=== PATIENT | female | born 2000 | race African-American/Black ===

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

== ENCOUNTER 2022-11-23 23:55 | Emergency (ER) | payer OTHER ==
[~2022-11-23] VITALS: Ht 170.2 cm; Wt 95.3 kg
[2022-11-24 00:07] VITALS: BP 138/74; PULSE 95; RESP 16; TEMP 97.3; O2SAT 98
[2022-11-24 00:16] VITALS: PULSE 88; RESP 18
[2022-11-24 00:19] VITALS: O2SAT 99
[2022-11-24] MEDS ORDERED: KEN.1O TP (00:41)
== END 2022-11-24 00:53 | disposition home or self-care (01) ==
LOC: MED 23:55
DX: L30.8 Other specified dermatitis (principal); K21.9 Gastro-esophageal reflux disease without esophagitis
CPT/HCPCS: 99283

== ENCOUNTER 2022-12-16 00:30 | Emergency (ER) | payer OTHER ==
[~2022-12-16] VITALS: Ht 170.2 cm; Wt 95.3 kg
[2022-12-16 00:30] VITALS: BP 134/80; PULSE 89; RESP 17; TEMP 98.3; O2SAT 100
[~2022-12-16 00:30] MED LIST: KEN.1O TP
[2022-12-16 01:28] VITALS: O2SAT 100
[2022-12-16 02:10] LABS: APPEARANCE,URINE CLEAR (CLEAR); BILIRUBIN,URINE NEGATIVE (NEGATIVE); BLOOD, URINE NEGATIVE (NEGATIVE); COLOR,URINE YELLOW (YELLOW); LEUKOCYTE ESTERASE ,URINE NEGATIVE (NEGATIVE); NITRITE, URINE NEGATIVE (NEGATIVE); PROTEIN,URINE NEGATIVE (NEGATIVE); UGLUCOSE 3+ (NEGATIVE); UROBILINOGEN,URINE 0.2 EU/dL (0.2 - 1)
[2022-12-16] MEDS ORDERED: NYSTRC TP (03:36)
== END 2022-12-16 03:47 | disposition home or self-care (01) ==
LOC: MED 00:30
DX: B37.31 Acute candidiasis of vulva and vagina (principal); L30.8 Other specified dermatitis; K21.9 Gastro-esophageal reflux disease without esophagitis; Z79.899 Other long term (current) drug therapy
CPT/HCPCS: 81003; 81025; 99283

== ENCOUNTER 2022-12-25 12:33 | Inpatient (IN) | payer OTHER ==
[~2022-12-25] VITALS: Ht 170.2 cm; Wt 84.8 kg
[~2022-12-25 12:33] MED LIST changes: +NYSTRC TP
[2022-12-25 12:45] VITALS: BP 130/101; PULSE 122; RESP 24; TEMP 98.7; O2SAT 99
[2022-12-25] MEDS ORDERED: FAMOTIDINE 20 MG/2 ML VIAL IVP ONE (13:05)
[2022-12-25] MEDS ORDERED: NACL 0.9% 1,000 ML IV ONE ×2 (13:05)
[2022-12-25] MEDS ORDERED: ONDANSETRON 4 MG/2 ML VIAL IVP ONE (13:05)
[2022-12-25 13:22] LABS: APPEARANCE,URINE CLEAR (CLEAR); BILIRUBIN,URINE NEGATIVE (NEGATIVE); BLOOD, URINE NEGATIVE (NEGATIVE); COLOR,URINE YELLOW (YELLOW); LEUKOCYTE ESTERASE ,URINE NEGATIVE (NEGATIVE); NITRITE, URINE NEGATIVE (NEGATIVE); PROTEIN,URINE TRACE (NEGATIVE); UGLUCOSE 3+ (NEGATIVE); UROBILINOGEN,URINE 0.2 EU/dL (0.2 - 1)
[2022-12-25 13:23] LABS: BASOPHILS # (AUTO) 0.1 K/uL (0.00-0.22); BASOPHILS % (AUTO) 0.7 % (0.0-2.0); EOSINOPHILS # (AUTO) 0.1 K/uL (0-0.4); EOSINOPHILS % (AUTO) 0.6 % (0.0-4.0); HEMATOCRIT 41.8 % (36-48); HEMOGLOBIN 13.9 g/dL (12.0-16.0); LYMPHOCYTES # (AUTO) 2.6 K/uL (2.5-16.5); LYMPHOCYTES % (AUTO) 21.7 % (20.5-51.1); MEAN CORPUSCULAR HEMOGLOBIN 29 pg (27-31); MEAN CORPUSCULAR HGB CONC 33 g/dL (33-37); MEAN CORPUSCULAR VOLUME 87.5 fL (80-94); MONOCYTES # (AUTO) 0.7 K/uL (0.8-1.0); MONOCYTES % (AUTO) 6.2 % (1.7-9.3); NEUTROPHILS # (AUTO) 8.5 K/uL (1.8-7.7); NEUTROPHILS % (AUTO) 70.8 % (42.2-75.2); PLATELET COUNT (AUTO) 229 K/uL (140-450); RED BLOOD CELL COUNT(AUTO) 4.78 MIL/uL (4.20-5.40); RED CELL DISTRIBUTION WIDTH 13.6 % (11.6-13.7)
[2022-12-25 13:46] LABS: ALBUMIN 4.3 g/dL (3.4-5.0); CARBON DIOXIDE 18.1 mmol/L (21-32); CREATININE 0.9 mg/dL (0.6-1.3); POTASSIUM 5.1 mmol/L (3.5-5.1); TOTAL BILIRUBIN 0.8 mg/dL (0.0-1.0); TOTAL PROTEIN, SERUM 8.7 g/dL (6.4-8.2)
[2022-12-25] MEDS ORDERED: DEXTROSE 50% 50 ML SYR IVP PRN (14:15)
[2022-12-25] MEDS: BLOOD GLUCOSE MONITORING 1 DEV DEV FS SCH ×9 (15:53→23:15)
[2022-12-25] MEDS: NACL 0.9% 1,000 ML IV SCH ×4 (15:53→23:45)
[2022-12-25] MEDS: INSULIN REGULAR, HUMAN 100 UNIT in NACL 0.9% 100 ML IV SCH ×4 (16:00→18:37)
[2022-12-25] MEDS ORDERED: ACETAMINOPHEN 325 MG TAB PO PRN (17:05)
[2022-12-25] MEDS ORDERED: KCL 20 MEQ IN 100 mL PREMIX 200 ML IV PRN (17:05)
[2022-12-25] MEDS ORDERED: ONDANSETRON 4 MG/2 ML VIAL IVP PRN (17:05)
[2022-12-25] MEDS: DEXT 5% / NACL 0.45% 1,000 ML IV SCH ×3 (17:05→19:15)
[2022-12-25] MEDS ORDERED: MAG SULF 2000 MG/WATER PREMIX 50 ML IV PRN (17:05)
[2022-12-25] MEDS ORDERED: MORPHINE SULFATE 2 MG/ML SYR IVP PRN (17:05)
[2022-12-25] MEDS ORDERED: POTASSIUM CHLORIDE 10 MEQ TABER PO PRN (17:05)
[2022-12-25] MEDS ORDERED: HYDROcodone/APAP 5/325 MG 1 TAB TAB PO PRN (17:05)
[2022-12-25 17:52] LABS: ANION GAP 18.4 (8-16); CALCIUM 8.9 mg/dL (8.5-10.1); CARBON DIOXIDE 19.1 mmol/L (21-32); CREATININE 0.7 mg/dL (0.6-1.3); POTASSIUM 3.5 mmol/L (3.5-5.1)
[2022-12-25 20:00] VITALS: BP 122/81; PULSE 88; RESP 17; TEMP 97.6; O2SAT 100; O2SAT 99
[2022-12-25 21:00] VITALS: BP 121/66; PULSE 81; RESP 17; O2SAT 99
[2022-12-25 22:00] VITALS: BP 121/66; PULSE 79; RESP 17; O2SAT 99
[2022-12-25 23:00] VITALS: BP 130/97; PULSE 89; RESP 17; O2SAT 99
[2022-12-26] VITALS (15 sets, daily range): BP systolic 91–153; BP diastolic 52–103; PULSE 74–120; RESP 14–27; TEMP 98–98.4; O2SAT 97–99
[2022-12-26] MEDS: DEXT 5% / NACL 0.45% 1,000 ML IV SCH ×4 (00:15→12:41)
[2022-12-26] MEDS: NACL 0.9% 1,000 ML IV SCH ×5 (00:15→13:05)
[2022-12-26] MEDS: BLOOD GLUCOSE MONITORING 1 DEV DEV FS SCH ×18 (00:44→18:44)
[2022-12-26 01:21] LABS: ANION GAP 10.9 (8-16); CALCIUM 8.8 mg/dL (8.5-10.1); CARBON DIOXIDE 22.9 mmol/L (21-32); CREATININE 0.7 mg/dL (0.6-1.3)
[2022-12-26 01:23] LABS: POTASSIUM 2.8 mmol/L (3.5-5.1)
[2022-12-26 04:22] LABS: BASOPHILS % (AUTO) 0.4 % (0.0-2.0); EOSINOPHILS # (AUTO) 0.1 K/uL (0-0.4); EOSINOPHILS % (AUTO) 1.4 % (0.0-4.0); HEMATOCRIT 34.2 % (36-48); HEMOGLOBIN 11.4 g/dL (12.0-16.0); LYMPHOCYTES % (AUTO) 21.2 % (20.5-51.1); MEAN CORPUSCULAR HEMOGLOBIN 29 pg (27-31); MEAN CORPUSCULAR HGB CONC 33 g/dL (33-37); MEAN CORPUSCULAR VOLUME 87.5 fL (80-94); MONOCYTES # (AUTO) 0.7 K/uL (0.8-1.0); MONOCYTES % (AUTO) 7.3 % (1.7-9.3); NEUTROPHILS # (AUTO) 6.7 K/uL (1.8-7.7); NEUTROPHILS % (AUTO) 69.7 % (42.2-75.2); PLATELET COUNT (AUTO) 184 K/uL (140-450); RED BLOOD CELL COUNT(AUTO) 3.91 MIL/uL (4.20-5.40); RED CELL DISTRIBUTION WIDTH 13.5 % (11.6-13.7); WHITE BLOOD COUNT (AUTO) 9.6 K/uL (4.5-11.0)
[2022-12-26 05:02] LABS: ALBUMIN 3.1 g/dL (3.4-5.0); ANION GAP 14.8 (8-16); CALCIUM 8.4 mg/dL (8.5-10.1); CARBON DIOXIDE 19.5 mmol/L (21-32); CHOL/HDL RATIO 3.5 (1-4.5); CREATININE 0.5 mg/dL (0.6-1.3); MAGNESIUM 1.5 mg/dL (1.8-2.4); POTASSIUM 3.3 mmol/L (3.5-5.1); TOTAL BILIRUBIN 0.5 mg/dL (0.0-1.0); TOTAL PROTEIN, SERUM 6.3 g/dL (6.4-8.2)
[2022-12-26 05:17] LABS: FREE T4 (FREE THYROXINE) 1.17 ng/dL (0.76-1.46); THYROID STIMULATING HORMONE 1.42 uIU/mL (0.34-3.74)
[2022-12-26] MEDS: INSULIN REGULAR, HUMAN 100 UNIT in NACL 0.9% 100 ML IV SCH ×4 (08:06→08:13)
[2022-12-26 08:47] LABS: ANION GAP 13.4 (8-16); CALCIUM 8.7 mg/dL (8.5-10.1); CARBON DIOXIDE 19.4 mmol/L (21-32); CREATININE 0.5 mg/dL (0.6-1.3); POTASSIUM 3.8 mmol/L (3.5-5.1)
[2022-12-26] MEDS: FAMOTIDINE 20 MG/2 ML VIAL IV SCH ×2 (09:00→21:21)
[2022-12-26] MEDS: ENOXAPARIN 40 MG/0.4 ML SYR SUBQ SCH (09:00)
[2022-12-26 12:18] LABS: ANION GAP 11.6 (8-16); CALCIUM 8.6 mg/dL (8.5-10.1); CARBON DIOXIDE 23.4 mmol/L (21-32); CREATININE 0.5 mg/dL (0.6-1.3)
[2022-12-26 12:21] LABS: MAGNESIUM 1.8 mg/dL (1.8-2.4)
[2022-12-26 20:28] LABS: ANION GAP 13.3 (8-16); CALCIUM 8.4 mg/dL (8.5-10.1); CARBON DIOXIDE 21.9 mmol/L (21-32); CREATININE 0.6 mg/dL (0.6-1.3); POTASSIUM 3.2 mmol/L (3.5-5.1)
[2022-12-26 20:31] LABS: MAGNESIUM 1.6 mg/dL (1.8-2.4); PHOSPHORUS 1.4 mg/dL (2.5-4.9)
[2022-12-26] MEDS ORDERED: INSULIN LANTUS 100 UNITS/ML 10 ML VIAL SUBQ ONE (21:05)
[2022-12-26] MEDS: MAGNESIUM OXIDE 400 MG TAB PO PRN (21:22)
[2022-12-27] VITALS (14 sets, daily range): BP systolic 104–146; BP diastolic 42–87; PULSE 70–103; RESP 16–24; TEMP 97.3–98.9; O2SAT 96–100
[2022-12-27 05:25] LABS: BASOPHILS % (AUTO) 0.2 % (0.0-2.0); EOSINOPHILS # (AUTO) 0.1 K/uL (0-0.4); EOSINOPHILS % (AUTO) 0.9 % (0.0-4.0); HEMATOCRIT 33.2 % (36-48); HEMOGLOBIN 11.1 g/dL (12.0-16.0); LYMPHOCYTES # (AUTO) 2.3 K/uL (2.5-16.5); LYMPHOCYTES % (AUTO) 25.6 % (20.5-51.1); MEAN CORPUSCULAR HEMOGLOBIN 29 pg (27-31); MEAN CORPUSCULAR HGB CONC 33 g/dL (33-37); MONOCYTES # (AUTO) 0.5 K/uL (0.8-1.0); MONOCYTES % (AUTO) 5.8 % (1.7-9.3); NEUTROPHILS # (AUTO) 6.2 K/uL (1.8-7.7); NEUTROPHILS % (AUTO) 67.5 % (42.2-75.2); PLATELET COUNT (AUTO) 165 K/uL (140-450); RED BLOOD CELL COUNT(AUTO) 3.78 MIL/uL (4.20-5.40); RED CELL DISTRIBUTION WIDTH 13.8 % (11.6-13.7); WHITE BLOOD COUNT (AUTO) 9.2 K/uL (4.5-11.0)
[2022-12-27 05:49] LABS: ALBUMIN 2.8 g/dL (3.4-5.0); ANION GAP 15.2 (8-16); CALCIUM 8.6 mg/dL (8.5-10.1); CARBON DIOXIDE 19.5 mmol/L (21-32); CREATININE 0.7 mg/dL (0.6-1.3); MAGNESIUM 1.6 mg/dL (1.8-2.4); POTASSIUM 3.7 mmol/L (3.5-5.1); TOTAL BILIRUBIN 0.5 mg/dL (0.0-1.0); TOTAL PROTEIN, SERUM 5.7 g/dL (6.4-8.2)
[2022-12-27] MEDS: BLOOD GLUCOSE MONITORING 1 DEV DEV FS SCH ×4 (06:08→20:20)
[2022-12-27] MEDS: INSULIN LISPRO SLIDING SCALE 100 UNITS/ML VIAL SUBQ PRN ×4 (06:10→20:26)
[2022-12-27] MEDS: FAMOTIDINE 20 MG/2 ML VIAL IV SCH ×2 (08:29→20:19)
[2022-12-27] MEDS: ENOXAPARIN 40 MG/0.4 ML SYR SUBQ SCH (08:35)
[2022-12-27] MEDS ORDERED: INSULIN LANTUS 100 UNITS/ML 10 ML VIAL SUBQ SCH ×3 (09:00→21:00)
[2022-12-27] MEDS: MAGNESIUM OXIDE 400 MG TAB PO PRN (17:59)
[2022-12-28 04:00] VITALS: BP 97/57; PULSE 70; RESP 18; TEMP 96.9; O2SAT 100
[2022-12-28] MEDS: BLOOD GLUCOSE MONITORING 1 DEV DEV FS SCH ×2 (07:02→12:14)
[2022-12-28] MEDS: INSULIN LISPRO SLIDING SCALE 100 UNITS/ML VIAL SUBQ PRN ×2 (07:04→12:15)
[2022-12-28 07:13] LABS: BASOPHILS % (AUTO) 0.4 % (0.0-2.0); EOSINOPHILS # (AUTO) 0.1 K/uL (0-0.4); EOSINOPHILS % (AUTO) 1.1 % (0.0-4.0); HEMOGLOBIN 11.7 g/dL (12.0-16.0); LYMPHOCYTES # (AUTO) 2.4 K/uL (2.5-16.5); LYMPHOCYTES % (AUTO) 37.1 % (20.5-51.1); MEAN CORPUSCULAR HEMOGLOBIN 30 pg (27-31); MEAN CORPUSCULAR HGB CONC 34 g/dL (33-37); MEAN CORPUSCULAR VOLUME 88.5 fL (80-94); MONOCYTES # (AUTO) 0.4 K/uL (0.8-1.0); MONOCYTES % (AUTO) 5.7 % (1.7-9.3); NEUTROPHILS # (AUTO) 3.7 K/uL (1.8-7.7); NEUTROPHILS % (AUTO) 55.7 % (42.2-75.2); PLATELET COUNT (AUTO) 174 K/uL (140-450); RED BLOOD CELL COUNT(AUTO) 3.95 MIL/uL (4.20-5.40); RED CELL DISTRIBUTION WIDTH 13.9 % (11.6-13.7); WHITE BLOOD COUNT (AUTO) 6.6 K/uL (4.5-11.0)
[2022-12-28 07:24] LABS: ANION GAP 12.4 (8-16); CALCIUM 8.8 mg/dL (8.5-10.1); CARBON DIOXIDE 26.6 mmol/L (21-32); CREATININE 0.5 mg/dL (0.6-1.3); MAGNESIUM 1.6 mg/dL (1.8-2.4); TOTAL BILIRUBIN 0.6 mg/dL (0.0-1.0); TOTAL PROTEIN, SERUM 3.9 g/dL (6.4-8.2)
[2022-12-28 08:00] VITALS: BP 107/65; PULSE 92; RESP 18; TEMP 98.2; O2SAT 98
[2022-12-28] MEDS: ENOXAPARIN 40 MG/0.4 ML SYR SUBQ SCH (09:00)
[2022-12-28] MEDS: MAGNESIUM OXIDE 400 MG TAB PO PRN (09:08)
[2022-12-28] MEDS ORDERED: POTASSIUM CHL 40 MEQ/ D5-1/2NS 1,000 ML IV SCH (10:10)
[2022-12-28] MEDS ORDERED: KCL 20 MEQ IN 100 mL PREMIX 200 ML IV SCH (10:17)
[2022-12-28] MEDS: FAMOTIDINE 20 MG/2 ML VIAL IV SCH (10:28)
[2022-12-28 10:57] VITALS: O2SAT 97
[2022-12-28] MEDS ORDERED: INSU100S22 SUBQ (11:11)
[2022-12-28] MEDS ORDERED: GLUC-805 FS (11:11)
[2022-12-28] MEDS ORDERED: GLUC-404 MC (11:12)
[2022-12-28] MEDS ORDERED: POTASSIUM CHLORIDE 10 MEQ TABER PO SCH (12:26)
[2022-12-28 14:16] VITALS: BP 107/65; PULSE 92; RESP 18; TEMP 98.2
[2022-12-28] MEDS ORDERED: INSULIN LANTUS 100 UNITS/ML 10 ML VIAL SUBQ SCH (21:00)
== END 2022-12-28 14:15 | disposition home or self-care (01) | DRG 420 ==
LOC: MED 12:33 → MTU 17:02 → MIC 18:10 → MTU 12-27 18:45
PROVIDERS: ADMIT Internal Medicine; ATTEND Internal Medicine
DX: E10.10 Type 1 diabetes mellitus with ketoacidosis without coma (principal); D72.829 Elevated white blood cell count, unspecified; E86.1 Hypovolemia; R35.89 Other polyuria; E86.9 Volume depletion, unspecified; R63.1 Polydipsia; K21.9 Gastro-esophageal reflux disease without esophagitis; Z79.899 Other long term (current) drug therapy
CPT/HCPCS: 36415; 80048; 80053; 81003; 82009; 82803; 82948; 83036; 83690; 83735; 84100; 84439; 84443; 85025; 87081; 96374; 96375; 99285; J1650; J1815; J2405; J3475; J3480; J3490

== ENCOUNTER 2023-10-12 08:44 | Emergency (ER) | payer SELFPAY ==
[~2023-10-12] VITALS: Ht 170.2 cm; Wt 97.7 kg
[~2023-10-12 08:44] MED LIST changes: +GLUC-404 MC; +GLUC-805 FS; +INSU100S22 SUBQ
[2023-10-12 08:50] VITALS: BP 119/71; PULSE 63; RESP 20; TEMP 97.7; O2SAT 97
[2023-10-12] MEDS ORDERED: INSU100I15 SQ (09:26)
[2023-10-12 09:42] VITALS: BP 119/71; PULSE 63; RESP 20; TEMP 97.7; O2SAT 97
== END 2023-10-12 09:43 | disposition home or self-care (01) ==
LOC: MED 08:44
DX: E10.649 Type 1 diabetes mellitus with hypoglycemia without coma (principal); Z76.0 Encounter for issue of repeat prescription; R51.9 Headache, unspecified; I10 Essential (primary) hypertension; K21.9 Gastro-esophageal reflux disease without esophagitis; Z79.899 Other long term (current) drug therapy
CPT/HCPCS: 82948; 99282